=== PATIENT | male | born 1975 | race African-American/Black ===

== ENCOUNTER 2016-11-11 06:12 | Emergency (ER) | payer BC ==
[~2016-11-11] VITALS: Ht 182.9 cm; Wt 109.0 kg
[2016-11-11] MEDS ORDERED: LISINOPRIL (06:19)
[2016-11-11 06:34] LABS: URINE SOURCE CLEAN CATCH
[2016-11-11 06:38] LABS: URINE APPEARANCE CLEAR; URINE BILIRUBIN NEG (NEG); URINE BLOOD TRACE-INTACT (NEG); URINE COLOR YELLOW; URINE GLUCOSE NEG (NORM); URINE KETONE NEG (NEG); URINE LEUKOCYTE ESTERASE 1+ (NEG); URINE NITRATE NEG (NEG); URINE PROTEIN NEG (NEG); URINE SPECIFIC GRAVITY 1.015 (1.003-1.035)
[2016-11-11 06:44] LABS: MICRO INDICATED? YES
[2016-11-11 06:45] LABS: CULTURE INDICATED? YES; URINE BACTERIA NEG (NEG); URINE SQUAMOUS EPITHELIAL CELL OCCAS /[HPF]
[2016-11-14 09:43] LABS: CHLAMYDIA TRACH Not Detected (Not Detected); N GONOR Not Detected (Not Detected)
== END 2016-11-11 07:09 | disposition home or self-care (01) ==
LOC: SED 06:12
PROVIDERS: Emergency Medicine
DX: R30.0 Dysuria (principal); I10 Essential (primary) hypertension; F17.200 Nicotine dependence, unspecified, uncomplicated
CPT/HCPCS: 81003; 87086; 87491; 87591; 96372; 99283; J0696